=== PATIENT | female | born 1940 | race Hispanic/Latino ===

== ENCOUNTER 2017-11-06 08:46 | Outpatient (CLI) | payer MEDICARE ==
--- NOTE | 2017-11-06 11:35 | XRay Report ---
RIGHT CLAVICLE TWO VIEWS: 11/06/17 08:46:00 CLINICAL: Pain in the right clavicle. COMPARISON: None. FINDINGS: The clavicle is intact with no fracture or dislocation.Mild acromioclavicular joint arthritis and irregularity of the acromion. Normal lung humeral alignment. Normal soft tissues. 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 The clavicle is normal.
== END 2017-11-06 08:47 | disposition home or self-care (01) ==
LOC: SPVIMAG 08:46
PROVIDERS: ATTEND Orthopaedic Surgery Sports Medicine
DX: M19.011 Primary osteoarthritis, right shoulder (principal); M89.8X1 Other specified disorders of bone, shoulder

== ENCOUNTER 2018-02-18 13:13 | Outpatient (CLI) | payer MEDICARE ==
--- NOTE | 2018-02-19 09:09 | Mammography Report ---
BONE DEXA:02/18/18 13:13:00 CLINICAL: Postmenopausal. COMPARISON: 05/06/15 TECHNIQUE: Two site bone DEXA performed on an Hologic scanner. FINDINGS: The average BMD of the lumbar spine L1-L4 is 1.477g/cm squared with a T-score of +2.9 and a Z-score of +6.3. This compares to 1.439g/cm squared on the last exam and represents a +2.6% change from the previous baseline. The average BMD of the right hip is 0.926g/cm squared with a T-score of -1.6 and a Z-score of +0.6. This compares to 0.939g/cm squared on the last exam and represents a -1.4% change from the previous baseline. IMPRESSION: 1. WHO classification: Normal with average fracture risk based on spine measurements. A modest increase in spine BMD compared to the previous exam and relatively high BMD. Although endplate sclerosis may contribute to a relatively high spine BMD, it does not appear to be the primary cause. High BMD can have a myriad of causes which include renal osteodystrophy, myelofibrosis and a number of metabolic bone diseases. 2. WHO classification: Osteopenia with increased fracture risk based on right hip measurements. A slight decline in right hip BMD compared to the previous exam. RECOMMENDATION: Clinical correlation and routine screening. DEFINITIONS: BMD = Bone Mineral Density T-score = BMD related to mean peak bone mass of young adult (mean expressed in Standard Deviation) Z-score = Age matched BMD expressed in SD World Health Organization (WHO) Diagnostic Criteria Normal T-score > -1 SD Osteopenia T-score between -1 and -2.4 SD Osteoporosis T-score -2.5 SD or below NOTE: BMD is not the only risk factor for fracture; also consider factors such as the patient's age, risk of falling, previous osteoporotic fracture, family history of osteoporotic fractures, current smoker, and low body weight. Z-scores are not calculated if >80 years of age.
== END 2018-02-18 13:14 | disposition home or self-care (01) ==
LOC: SPVWC 13:13
DX: M85.80 Other specified disorders of bone density and structure, unspecified site (principal); Z78.0 Asymptomatic menopausal state
CPT/HCPCS: 77080